=== PATIENT | female | born 1955 | race Two or more races ===

== ENCOUNTER 2024-02-04 18:49 | Inpatient (IN) | payer OTHER ==
[~2024-02-04] VITALS: Ht 149.9 cm; Wt 95.3 kg
[2024-02-04] MEDS ORDERED: METF-494 PO (19:31)
[2024-02-04] MEDS ORDERED: ATOR10TA PO (19:31)
[2024-02-04] MEDS ORDERED: FERR325T30 PO (19:31)
[2024-02-04] MEDS ORDERED: MONT10TA33 PO (19:31)
[2024-02-04] MEDS ORDERED: DICY10SO PO (19:31)
[2024-02-04] MEDS ORDERED: GABA300T25 PO (19:31)
[2024-02-04] MEDS ORDERED: CITA40TA11 PO (19:31)
[2024-02-04] MEDS ORDERED: LEVO50TA8 PO (19:31)
[2024-02-04] MEDS ORDERED: LOSA50TA39 PO (19:31)
[2024-02-04] MEDS ORDERED: PRIM250T32 PO (19:31)
[2024-02-04] MEDS ORDERED: GLIP5TAB13 PO (19:31)
[2024-02-04 19:59] LABS: BASOPHILS # (AUTO) 0.1 K/UL (0.0-0.2); HEMATOCRIT 36.1 % (31.2-41.9); HEMOGLOBIN 12.1 g/dL (10.9-14.3); LYMPHOCYTES # (AUTO) 0.5 K/uL (0.8-4.8); MEAN CORPUSCULAR HEMOGLOBIN 29.7 uug (24.7-32.8); MEAN CORPUSCULAR HGB CONC 33 g/dL (32.3-35.6); MONOCYTES # (AUTO) 0.1 K/uL (0.1-1.30); MONOCYTES % (AUTO) 1.1 % (0.0-11.0); NEUTROPHILS # (AUTO) 11.4 K/uL (1.8-8.9); NEUTROPHILS % (AUTO) 93.9 % (38.5-71.5); PLATELET COUNT (AUTO) 195 K/uL (179-408); RED BLOOD CELL COUNT(AUTO) 4.06 MIL/uL (3.63-4.92); RED CELL DISTRIBUTION WIDTH 15.4 % (12.3-17.7); WHITE BLOOD COUNT (AUTO) 12.2 K/uL (3.8-11.8)
[2024-02-04] MEDS ORDERED: ACETAMINOPHEN 500 MG TABLET ONE (20:00)
[2024-02-04 20:02] LABS: DIFFERENTIAL COMMENT 1
[2024-02-04] MEDS: ACETAMINOPHEN 500 MG TABLET PO ONE (20:02)
[2024-02-04 20:20] LABS: CALCIUM 9.4 mg/dL (8.5-10.1); CARBON DIOXIDE 29 mmol/L (21-32); CHLORIDE 91 mmol/L (98-107); CREATININE 0.8 mg/dL (0.6-1.3); GLUCOSE 126 mg/dL (74-106); POTASSIUM 3.6 mmol/L (3.5-5.1); SODIUM SERUM 127 mmol/L (136-145); UREA NITROGEN, BLOOD 16 mg/dL (7-18)
[2024-02-04 20:25] LABS: ALANINE AMINOTRANSFERASE 24 U/L (14-59); ALBUMIN 4.1 g/dL (3.4-5.0); ALKALINE PHOSPHATASE 86 U/L (50-136); ASPARTATE AMINOTRANSFERASE 14 U/L (15-37); BILIRUBIN,TOTAL 0.8 mg/dL (0.2-1.0); TOTAL PROTEIN, SERUM 7.5 g/dL (6.4-8.2)
[2024-02-04 20:44] LABS: BILIRUBIN,DIRECT 0.2 mg/dL (0.0-0.2)
[2024-02-04 21:17] LABS: *BILIRUBIN,URIN NEGATIVE (NEGATIVE); *BLOOD, URINE 1+ (NEGATIVE); *CLARITY,URINE CLEAR (CLEAR); *COLOR,URINE YELLOW (YELLOW); *KETONES,URINE NEGATIVE (NEGATIVE); *PROTEIN,URINE NEGATIVE (NEGATIVE); *UROBILINOGEN,URINE 0.2 E.U./dl (NORMAL); LEUKOCYTE ESTERASE ,URINE 3+ (NEGATIVE); NITRITE, URINE POSITIVE (NEGATIVE); UGLUCOSE NEGATIVE (NEGATIVE)
[2024-02-04 21:19] LABS: RBC,URINE 0-3 /HPF (0-3)
[2024-02-04] MEDS ORDERED: CEFTRIAXONE /D5W 50ML IVPB **ER PYXIS IV ONE (22:05)
[2024-02-04] MEDS: CEFTRIAXONE 1 G in IV DEXTROSE 5% 50 ML IV ONE (22:16)
[2024-02-05] MEDS ORDERED: MAGNESIUM HYDROXIDE 30 ML LIQUID UDC PO PRN (01:00)
[2024-02-05] MEDS ORDERED: ONDANSETRON 4 MG/2 ML VIAL IV PRN (01:00)
[2024-02-05] MEDS ORDERED: REMEDY ESSENTIAL ZINC PASTE 113 GM TP PRN (01:00)
[2024-02-05 08:00] VITALS: BP 151/63; TEMP 98.7; O2SAT 100
[2024-02-05 08:02] LABS: PHOSPHOROUS 4.1 mg/dL (2.5-4.9)
[2024-02-05 08:07] LABS: BASOPHILS % (AUTO) 0.1 % (0.0-2.0); DIFFERENTIAL COMMENT 0; EOSINOPHILS % (AUTO) 0.1 % (0.0-7.0); HEMATOCRIT 35.6 % (31.2-41.9); HEMOGLOBIN 12.2 g/dL (10.9-14.3); LYMPHOCYTES # (AUTO) 0.4 K/uL (0.8-4.8); MEAN CORPUSCULAR HEMOGLOBIN 30.6 uug (24.7-32.8); MEAN CORPUSCULAR HGB CONC 34 g/dL (32.3-35.6); MEAN CORPUSCULAR VOLUME 89.1 fL (75.5-95.3); MONOCYTES # (AUTO) 0.1 K/uL (0.1-1.30); MONOCYTES % (AUTO) 0.8 % (0.0-11.0); NEUTROPHILS # (AUTO) 10.4 K/uL (1.8-8.9); PLATELET COUNT (AUTO) 179 K/uL (179-408); RED BLOOD CELL COUNT(AUTO) 3.99 MIL/uL (3.63-4.92); RED CELL DISTRIBUTION WIDTH 15.8 % (12.3-17.7); WHITE BLOOD COUNT (AUTO) 10.9 K/uL (3.8-11.8)
[2024-02-05] MEDS: ACETAMINOPHEN 325 MG TABLET PO PRN (08:07)
[2024-02-05 08:33] LABS: CALCIUM 9.5 mg/dL (8.5-10.1); CREATININE 0.7 mg/dL (0.6-1.3); POTASSIUM 3.6 mmol/L (3.5-5.1)
[2024-02-05 10:01] VITALS: TEMP 98.7
[2024-02-05] MEDS ORDERED: PRIMIDONE 250 MG TABLET PO SCH (10:30)
[2024-02-05 11:17] VITALS: BP 108/55; TEMP 98.8; O2SAT 94
[2024-02-05] MEDS ORDERED: LOSA1TAB36 PO (11:24)
[2024-02-05] MEDS ORDERED: OMEP20CA15 PO (11:24)
[2024-02-05] MEDS ORDERED: MAGN400T26 PO (11:24)
[2024-02-05] MEDS ORDERED: PIOG30TA10 PO (11:24)
[2024-02-05] MEDS ORDERED: GABA300C PO ×2 (11:24)
[2024-02-05] MEDS ORDERED: DICY20TA11 PO (11:24)
[2024-02-05] MEDS: LEVOTHYROXINE SODIUM 50 MCG TABLET PO SCH (11:44)
[2024-02-05] MEDS: FERROUS SULFATE 325 MG TABEC PO SCH (11:45)
[2024-02-05] MEDS ORDERED: DICYCLOMINE HCL 20 MG TABLET PO PRN (11:45)
[2024-02-05] MEDS: CITALOPRAM 20 MG TABLET PO SCH (11:45)
[2024-02-05] MEDS: HYDROCHLOROTHIAZIDE 12.5 MG CAPSULE PO SCH (11:45)
[2024-02-05] MEDS: LOSARTAN POTASSIUM 50 MG TABLET PO SCH (11:45)
[2024-02-05] MEDS ORDERED: DICYCLOMINE HCL 10 MG CAPSULE PO SCH (12:00)
[2024-02-05] MEDS: GABAPENTIN 300 MG CAPSULE PO SCH (13:29)
[2024-02-05 14:58] VITALS: BP 109/54; TEMP 98.8; O2SAT 96
[2024-02-05] MEDS: METFORMIN XR 500 MG TAB.SR.24H PO SCH (17:13)
[2024-02-05] MEDS: glipiZIDE 5 MG TABLET PO SCH (17:13)
[2024-02-05] MEDS: MONTELUKAST SODIUM 10 MG TABLET PO SCH (17:13)
[2024-02-05] MEDS: ATORVASTATIN 10 MG TABLET PO SCH (17:13)
[2024-02-05 20:00] VITALS: BP 135/80; TEMP 98.9; O2SAT 99
[2024-02-05] MEDS: PRIMIDONE 250 MG TABLET PO SCH (20:20)
[2024-02-05] MEDS: CEFTRIAXONE 1 G in IV DEXTROSE 5% 50 ML IV SCH (21:03)
[2024-02-06] VITALS: BP 124/58; TEMP 98.6; O2SAT 96
[2024-02-06 04:00] VITALS: BP 109/56; TEMP 99.2; O2SAT 97
[2024-02-06] MEDS: PANTOPRAZOLE SODIUM 40 MG TABLET.DR PO SCH (06:04)
[2024-02-06] MEDS: LEVOTHYROXINE SODIUM 50 MCG TABLET PO SCH (06:04)
[2024-02-06 08:12] LABS: BASOPHILS % (AUTO) 0.4 % (0.0-2.0); EOSINOPHILS # (AUTO) 0.2 K/uL (0.0-0.7); EOSINOPHILS % (AUTO) 1.5 % (0.0-7.0); HEMATOCRIT 35.8 % (31.2-41.9); LYMPHOCYTES # (AUTO) 0.9 K/uL (0.8-4.8); LYMPHOCYTES % (AUTO) 7.9 % (20.5-51.5); MEAN CORPUSCULAR HEMOGLOBIN 29.9 uug (24.7-32.8); MEAN CORPUSCULAR HGB CONC 34 g/dL (32.3-35.6); MEAN CORPUSCULAR VOLUME 89.2 fL (75.5-95.3); MONOCYTES % (AUTO) 8.5 % (0.0-11.0); NEUTROPHILS # (AUTO) 9.2 K/uL (1.8-8.9); NEUTROPHILS % (AUTO) 81.7 % (38.5-71.5); PLATELET COUNT (AUTO) 172 K/uL (179-408); RED BLOOD CELL COUNT(AUTO) 4.01 MIL/uL (3.63-4.92); RED CELL DISTRIBUTION WIDTH 15.7 % (12.3-17.7); WHITE BLOOD COUNT (AUTO) 11.3 K/uL (3.8-11.8)
[2024-02-06 08:24] LABS: CALCIUM 8.9 mg/dL (8.5-10.1); CREATININE 0.7 mg/dL (0.6-1.3); POTASSIUM 3.4 mmol/L (3.5-5.1)
[2024-02-06] MEDS: PIOGLITAZONE HCL 15 MG TABLET PO SCH (08:24)
[2024-02-06 08:25] LABS: DIFFERENTIAL COMMENT 1
[2024-02-06 08:28] LABS: MAGNESIUM 2.1 mg/dL (1.8-2.4); PHOSPHOROUS 3.3 mg/dL (2.5-4.9); URIC ACID 4.4 mg/dL (2.6-6.0)
[2024-02-06] MEDS ORDERED: MAGNESIUM OXIDE 400 MG TABLET PO SCH (09:00)
[2024-02-06 09:15] LABS: THYROID STIMULATING HORMONE 1.968 mIU/mL (0.358-3.740)
[2024-02-06] MEDS: MAGNESIUM OXIDE 400 MG TABLET PO ONE (10:30)
[2024-02-06 11:17] VITALS: BP 121/68; TEMP 97.6; O2SAT 94
[2024-02-06] MEDS ORDERED: CIPR-262 PO (11:53)
== END 2024-02-06 13:00 | disposition home or self-care (01) | DRG 871 ==
LOC: ER 18:53 → TELE3 02-05 00:50
PROVIDERS: ATTEND Nurse Practitioner Acute Care
DX: A41.50 Gram-negative sepsis, unspecified (principal); G93.41 Metabolic encephalopathy; N39.0 Urinary tract infection, site not specified; E87.1 Hypo-osmolality and hyponatremia; Z68.41 Body mass index [BMI] 40.0-44.9, adult; E78.5 Hyperlipidemia, unspecified; E86.1 Hypovolemia; E03.9 Hypothyroidism, unspecified; Z87.820 Personal history of traumatic brain injury; I45.10 Unspecified right bundle-branch block; Z79.84 Long term (current) use of oral hypoglycemic drugs; E11.9 Type 2 diabetes mellitus without complications; R65.20 Severe sepsis without septic shock; F03.90 Unspecified dementia, unspecified severity, without behavioral disturbance, psychotic disturbance, mood disturbance, and anxiety; E66.01 Morbid (severe) obesity due to excess calories; K57.30 Diverticulosis of large intestine without perforation or abscess without bleeding; D25.9 Leiomyoma of uterus, unspecified; I10 Essential (primary) hypertension; Z98.890 Other specified postprocedural states; Z79.890 Hormone replacement therapy; Z79.899 Other long term (current) drug therapy
CPT/HCPCS: 36415; 70450; 71250; 83605; 83735; 84100; 84443; 84484; 84550; 85025; 85730; 87040; 93005; A9150; G0378; J0696